=== PATIENT | female | born 1990 | race Two or more races ===

== ENCOUNTER 2020-03-27 12:40 | Emergency (ER) | payer BC ==
[~2020-03-27] VITALS: Ht 157.5 cm; Wt 74.5 kg
[2020-03-27] MEDS ORDERED: FEXO-23 PO (12:48)
[2020-03-27 12:49] VITALS: BP 119/83
[2020-03-27 14:08] LABS: COVID AG,FIA SOURCE NASOPHARYNGEAL
== END 2020-03-27 14:09 | disposition home or self-care (01) ==
LOC: EMS 12:40
DX: R51.9 Headache, unspecified (principal); J02.9 Acute pharyngitis, unspecified; F17.210 Nicotine dependence, cigarettes, uncomplicated; Z20.828 Contact with and (suspected) exposure to other viral communicable diseases
CPT/HCPCS: 87426; 99283; C9803; U0003